=== PATIENT | female | born 1940 | race Caucasian/White ===

== ENCOUNTER 2017-06-04 08:00 | Day surgery (SDC) | payer OTHER ==
[2017-06-04] MEDS ORDERED: DIAZEPAM 5 MG TAB PO ONE (08:07)
[2017-06-04] MEDS ORDERED: FAMOTIDINE 20 MG TAB PO ONE (08:07)
[2017-06-04] MEDS ORDERED: diphenhydrAMINE 25 MG CAP PO ONE ×2 (08:07→08:35)
[2017-06-04] MEDS ORDERED: NS 1,000 ML IV ONE (08:07)
[2017-06-04] MEDS ORDERED: ASPIRIN EC 325 MG TAB PO ONE ×2 (08:07→08:35)
--- NOTE | 2017-06-04 08:30 | CPEKG ---
Heart Rate: 69 RR Interval: 870 P-R Interval: 168 QRSD Interval: 126 QT Interval: 432 QTC Interval: 463 P Hughson: 65 QRS Hughson: 55 T Wave Hughson: -57 EKG Severity - ABNORMAL ECG - EKG Impression: SINUS RHYTHM EKG Impression: LEFT BUNDLE BRANCH BLOCK EKG Impression: Agree with above Electronically Signed By: Eduardo Maldonado 04-Jun-2017 10:41:40
[2017-06-04] MEDS ORDERED: DIAZEPAM 5 MG TAB ONE (08:35)
[2017-06-04] MEDS ORDERED: FAMOTIDINE 20 MG TAB ONE (08:35)
--- NOTE | 2017-06-04 08:45 | PDPROPOC ---
Sedation Plan of Care Sedation Plan of Care: vital signs stable, mental status noted, patient educated of risks, benefits, alternatives, patient can tolerate sedation ASA Classification: ASA 2 Planned drugs: fentanyl, midazolam Mallampati Score: Class 2 Mallampati Reference Image: Patient passed 3-3-2 rule?: Yes
--- NOTE | 2017-06-04 08:46 | PDHPUP ---
History & Physical Update H&P update statement: This history and physical update is based on an assessment of the patient which was completed after admission or registration (within 24 hours), but prior to the surgery/procedure. H&P update: H&P reviewed & patient examined, no change in patient's condition since H&P completed, changes noted
[2017-06-04 08:59] LABS: PLATELET COUNT 244 10^3/uL (150-400)
[2017-06-04 09:06] LABS: INR 0.95 (0.83-1.16); PROTIME(PATIENT) 12.9 SEC (12.0-15.0)
[2017-06-04] MEDS ORDERED: fentaNYL 100 MCG/2 ML INJ ONE (10:00)
[2017-06-04] MEDS ORDERED: MIDAZOLAM 2 MG/2 ML VIAL ONE (10:00)
[2017-06-04] MEDS ORDERED: LIDOCAINE 1% 300 MG/30 ML SDV ONE (10:00)
[2017-06-04] MEDS ORDERED: IOPAMIDOL (ISOVUE-370) 150 ML BTL IV ONE (10:00)
[2017-06-04] MEDS ORDERED: ATROPINE SULFATE 1 MG/10 ML SYR ONE (11:05)
--- NOTE | 2017-06-04 11:12 | PDDXCAT ---
Diagnostic Cath Note - . Date: 06/04/17 Ceramics Teacher: Hever High-risk criteria on non-invasive testing: stress-induced moderate-size multiple perfusion defects - Procedure Access: right groin Procedure: left heart catheterization, coronary angiography, left ventriculogram - Materials Left Heart Cath size: 6F Left Heart Cath materials: standard multipack (JL4, JR4, pigtail), JL3.5 - Findings-Left Heart Catheterization LM: Short, bifurcation into the LAD and LCX vessels. No luminal irregularities were noted. LAD: Medium sized vessel with an early, principal diagonal (slightly smaller than the take off from the LAD). No appreciable luminal irregularities were noted. Distal vessel was small. LCX: Medium sized vessel with two principal obtuse marginals. Mid to distal LCX is small to moderate sized diameter. No luminal irregularities were noted. RCA: Medium to large diameter vessel. This vessel supplies the PDA. No luminal irregulartities, but there was a kink to to the osium of the RCA ( thought secondary to the catheter). EDP: 16 mm Hg LVEF: 55 Wall motion: normal Complications: none Estimated blood loss: <50ml Closure method: manual pressure Assessment: 76 y/o female with a small sized apical reversible perfusion defect and ongoing complaints of dyspnea (query anginal equivalent). No appreciable luminal irregularities were noted. Normal left ventricular systolic ejection fraction was noted. Plan: Plan to continue medical therapy as at present. Would have patient seen in the office in 1 week. Discussed findings with post case. Intervention: none
[2017-06-04 16:47] VITALS: BP 139/57
== END 2017-06-04 16:59 | disposition home or self-care (01) ==
LOC: FCATH 08:00
PROVIDERS: ATTEND Internal Medicine Cardiovascular Disease
PROC: B2111ZZ Fluoroscopy of Multiple Coronary Arteries using Low Osmolar Contrast (ICD-10-PCS; principal; 2017-06-04)
PROC: 4A023N7 Measurement of Cardiac Sampling and Pressure, Left Heart, Percutaneous Approach (ICD-10-PCS; principal; 2017-06-04)
PROC: B2151ZZ Fluoroscopy of Left Heart using Low Osmolar Contrast (ICD-10-PCS; principal; 2017-06-04)
DX: R94.39 Abnormal result of other cardiovascular function study (principal); R06.00 Dyspnea, unspecified; E78.5 Hyperlipidemia, unspecified; I10 Essential (primary) hypertension; Z79.82 Long term (current) use of aspirin; Z87.891 Personal history of nicotine dependence; Z82.49 Family history of ischemic heart disease and other diseases of the circulatory system; Z96.651 Presence of right artificial knee joint
CPT/HCPCS: J0461; J1644; J2250; J3010; Q9967

== ENCOUNTER 2017-11-03 09:19 | Observation (INO) | payer OTHER ==
[2017-11-03] MEDS ORDERED: DIAZEPAM 5 MG TAB PO ONE (09:22)
[2017-11-03] MEDS ORDERED: diphenhydrAMINE 25 MG CAP PO ONE ×2 (09:22→09:25)
[2017-11-03] MEDS ORDERED: ceFAZolin 2 GM/DEXTROSE 100 ML IV ONE (09:22)
[2017-11-03] MEDS ORDERED: BACITRACIN IRRIGATION/NS 50,000 UNITS/1,000 ML BTL IRR ONE (09:22)
[2017-11-03] MEDS ORDERED: NS 1,000 ML IV ONE (09:22)
[2017-11-03] MEDS ORDERED: DIAZEPAM 5 MG TAB ONE (09:25)
[2017-11-03 10:48] LABS: PLATELET COUNT 261 10^3/uL (150-400)
--- NOTE | 2017-11-03 10:50 | PDGENHP ---
History & Physical Chief Complaint: Second degree heart block History of Present Illness: dizziness Relevant Physical Exam: S1-S2 regular rate and rhythm lungs clear to auscultation alert and oriented x3 Cardiorespiratory Assessment: 77-year-old female with intermittent second- degree heart block noted on LINQ monitor. I have reviewed these tracings personally. I have discussed with Dr. Guillermo Kathleen who saw her in clinic yesterday. Patient has presyncope. Class 1 indication for pacemaker. Risks of transvenous pacemaker implantation including but not limited to , myocardial infarction, stroke, cardiac tamponade which may require emergent cardiac surgery, infection, bleeding, pneumothorax, lead dislodgement and risks of sedation/anesthesia were discussed. Long-term issues like pacemaker pocket erosion, lead failure, venous stenosis, superior vena cava syndrome, need for lead extraction were discussed. Need for close long-term follow-up in our device clinic was emphasized. Need for generator change was discussed.
--- NOTE | 2017-11-03 10:50 | PDPROPOC ---
Sedation Plan of Care Sedation Plan of Care: vital signs stable, mental status noted, patient educated of risks, benefits, alternatives, patient can tolerate sedation ASA Classification: ASA 2 Planned drugs: fentanyl, midazolam Mallampati Score: Class 1 Mallampati Reference Image: Patient passed 3-3-2 rule?: Yes
[2017-11-03 10:53] LABS: INR 1.02 (0.83-1.16); PROTIME(PATIENT) 13.6 SEC (12.0-15.0)
[2017-11-03] MEDS ORDERED: MIDAZOLAM 2 MG/2 ML VIAL ONE (11:11)
[2017-11-03] MEDS ORDERED: IOPAMIDOL (ISOVUE-300) 50 ML VIAL ONE (11:11)
[2017-11-03] MEDS ORDERED: fentaNYL 100 MCG/2 ML INJ ONE (11:11)
[2017-11-03] MEDS ORDERED: LIDOCAINE 1% 300 MG/30 ML SDV ONE (11:11)
[2017-11-03] MEDS ORDERED: BUPIVACAINE 0.5% 30 ML SDV ONE (11:12)
--- NOTE | 2017-11-03 14:05 | EPPROC ---
Electrophysiology Procedure Note: PROCEDURE PERFORMED: 1. Implantation of an A/V Pacemaker 2. Subclavian vein angiography 3. Fluoroscopy INDICATION: Complete AV block Fatigue PROCEDURE NOTE: Patient presented to the cardiac catheterization laboratory in a fasting, post absorptive state . EP RN administered sedation. The left infraclavicular area was prepped and draped in the usual sterile fashion. Lidocaine plus bupivacaine was used for local anesthesia. Left subclavian venography was performed by injection of iodinated contrast into the left antecubital vein. This was done to assure patency of the vein and also to assess for any anatomical aberrations. Using a combination of blunt and sharp dissection and electrocautery, the dissection was carried down to the prepectoral fascia. A pocket was made in this anatomical plane. All bleeding was controlled with electrocautery. The pocket was packed with gauze soaked in antibiotic solution. Fluoroscopy was utilized during the entire procedure for venous access and placement of the leads. Using a direct stick technique the left extrathoracic axillary vein was accessed with 2 sticks using the modified Seldinger technique. Placement of the guidewires into the venous system was confirmed by low-pressure blood return and also by visualizing the guidewires advancing into the inferior vena cava. A purse string suture was applied around the guidewires. Two #6 [place] sheaths were advanced under fluoroscopic guidance over the guidewire. An active fixation ventricular lead was advanced into the right ventricular apex and screwed in place. An active fixation atrial lead was advanced into the right atrial appendage and screwed in place. The peel away sheaths were removed. Pacing thresholds, sensing parameters and lead impedances were measured. There was no diaphragmatic stimulation at maximum output. The leads were sutured to the prepectoral fascia with 3 nonabsorbable sutures each. The pocket was again inspected for any bleeding. The leads were attached to the pacemaker securely. The pacemaker was inserted into the pocket and secured in place with a nonabsorbable suture. Fluoroscopy was performed in RICK and ICELANDIC planes to verify right-sided placement of the leads. Also fluoroscopy of the pacemaker pocket was performed. The pacemaker pocket was closed in 3 layers with absorbable monocryl sutures and aria. Appropriate dressing was applied. The patient left the cardiac catheterization laboratory in stable condition. Serial Numbers: 1. Device: [employer] MRI, PM 2272. SN: [id number] 2. Atrial Lead: SJM TENDRIL STS, /46. SN: [id number] 3. Ventricular Lead: SJM TENDRIL STS, /52. SN: [id number] Stimulation Thresholds & Impedance Measurements: 1. Atrial Lead: 1.0v@0.5ms /1.9mV / 426 ohms. 2. Ventricular Lead: 0.4V@0.5ms /4.0mV/ 532 ohms. Golden Pacing Parameters 1. Pacing mode: DDD 2. Lower rate: 60ppm 3. Upper tracking rate: 130 ppm 4. Upper sensor rate: 130 ppm Patient Problems: Problems Problem Status Onset Heart block AV second degree Acute
[2017-11-03] MEDS ORDERED: IBUPROFEN 600 MG TAB PO PRN (17:30)
[2017-11-03] MEDS ORDERED: TEMAZEPAM 15 MG CAP PO PRN (17:30)
[2017-11-03] MEDS: ACETAMINOPHEN 325 MG TAB PO PRN (17:49)
[2017-11-03] MEDS ORDERED: IRBESARTAN 150 MG TAB PO SCH (18:00)
[2017-11-03] MEDS ORDERED: FAMOTIDINE 20 MG TAB PO SCH (18:00)
[2017-11-03] MEDS: MEMANTINE HCL 5 MG TAB PO SCH (19:50)
[2017-11-04] MEDS: ACETAMINOPHEN 325 MG TAB PO PRN ×2 (02:36→07:17)
[2017-11-04 03:14] VITALS: BP 137/62
[2017-11-04 04:22] LABS: PLATELET COUNT 238 10^3/uL (150-400)
[2017-11-04] MEDS: MEMANTINE HCL 5 MG TAB PO SCH (08:16)
[2017-11-04] MEDS ORDERED: ASPIRIN 81 MG CHEWABLE TAB PO SCH (09:00)
[2017-11-04] MEDS ORDERED: ROSUVASTATIN CALCIUM 20 MG TAB PO SCH (09:00)
--- NOTE | 2017-11-04 12:00 | CPEKG ---
Test Reason : OPEN Blood Pressure : / mmHG Vent. Rate : 036 BPM Atrial Rate : 070 BPM P-R Int : 142 ms QRS Dur : 145 ms QT Int : 539 ms P-R-T Axes : 059 053 062 degrees QTc Int : 417 ms Predominant 2:1 AV block IVCD, consider atypical LBBB This 2:1 heart block is new in comparison to prior Confirmed by Guillermo Kathleen ([id number]) on 11/04/2017 11:59:50 AM Referred By: Confirmed By:Guillermo Kahtleen
--- NOTE | 2017-11-04 12:05 | CPEKG ---
Test Reason : OPEN Blood Pressure : / mmHG Vent. Rate : 060 BPM Atrial Rate : 060 BPM P-R Int : 204 ms QRS Dur : 156 ms QT Int : 509 ms P-R-T Axes : 045 -81 083 degrees QTc Int : 509 ms A-V dual-paced rhythm with some inhibition AV pacing is new in comparison to prior ECG Confirmed by Guillermo Kathleen ([id number]) on 11/04/2017 12:05:27 PM Referred By: Confirmed By:Guillermo Kathleen
--- NOTE | 2017-11-04 12:21 | CPEKG ---
Test Reason : OPEN Blood Pressure : / mmHG Vent. Rate : 067 BPM Atrial Rate : 068 BPM P-R Int : 182 ms QRS Dur : 160 ms QT Int : 466 ms P-R-T Axes : 048 -81 093 degrees QTc Int : 492 ms Sinus rhythm Nonspecific IVCD with LAD Left ventricular hypertrophy Inferior infarct, acute (RCA) Anterolateral infarct, old Probable RV involvement, suggest recording right precordial leads Prior ECG with AV pacing. Infrequent pacing spikes noted on this ECG (morphology appears similar to paced rhythm) Confirmed by Guillermo Kahtleen ([id number]) on 11/04/2017 12:20:11 PM Referred By: Confirmed By:Guillermo Kathleen
--- NOTE | 2017-11-04 15:29 | GDS ---
SUPERVISING LIFE TRAINER: Nirmal Bray MD ADMISSION DIAGNOSES: 1. Second-degree atrioventricular heart block, type II. 2. Paroxysmal atrial fibrillation. 3. Hyperlipidemia. 4. Hypertension. 5. Known history of left bundle branch block. DISCHARGE DIAGNOSES: 1. Second-degree heart block, type 2. 2. Status post permanent pacemaker implantation. 3. Paroxysmal atrial fibrillation. 4. Hypercholesteremia. 5. Hyperlipidemia. 6. Hypertension. 7. Left bundle branch block. PROCEDURES PERFORMED: 1. Electrocardiogram. 2. Implantation as a [employer] [facility] pacemaker with right atrial and right ventricular leads. 3. Subclavian angiogram. 4. Loop recorder removal. 5. Chest x-ray. BRIEF HISTORY: Please see H and P. Briefly, the patient is a 77-year-old female with noted history of PAF, hyperlipidemia and hypertension. She is currently not on anticoagulation due to implanted LI NQ with no recordable episodes of atrial fibrillation. Recently noted fatigue symptoms, patient repo rting palpitations, fluttering, LINQ data showed that she had episodes of second-degree AV block type II. She was asked to come to the hospital by Dr. Kathleen, for pacemaker implantation. HOSPITAL COURSE: Patient admitted to [facility], prepped for procedure, taken to the electrophysiology lab where Dr. Bray implanted a [employer] pacemaker with [employer] [facility] right atrial and right ventricular leads. No apparent complications. Old LINQ recorder was removed. The patient was taken back to the C an d ultimately to the PCU telemetry unit for overnight observation. There, she has been A sensed, V pa dino throughout the night. She denies any chest pain, pressure, or symptoms suggesting of ischemia. She has been up and walking with no lightheadedness. She reports her fatigue symptoms have significa ntly improved. PHYSICAL EXAMINATION: General appearance: Today, medium built, well-groomed female. She is alert and oriented to person, place, time, and situation, appears to be under no acute distress. VITAL SIGNS: Current: Blood pressure of 137/62, heart rate is 64, respirations 16, saturating 94% o n room air. Temperature of 36.7 degrees Celsius. HEENT: Head is normocephalic. Lips and tongue ar e pink and moist with no signs of cyanosis. Conjunctivae pink. NECK: Trachea is midline, +2 caroti d pulses bilateral. No auscultated bruits. No jugular vein distention. RESPIRATORY: Lungs are kyrie ar to auscultation. No rhonchi, rales, or wheezes. No accessory muscle use. No intercostal muscle retraction noted. CARDIAC: Regular rate, regular rhythm, S1, S2. No S3, S4, gallops, rubs, or murm urs noted. ABDOMEN: Soft, nontender. Bowel sounds x4 quadrants. No organomegaly. No palpable mas ses. SKIN: [place], warm, dry. No cyanosis. No clubbing. No peripheral edema. VASCULAR: +2 caroti ds bilateral, +2 radials bilateral, +1 dorsal pedal and posterior tibial pulses bilateral. SKIN: Pacemaker insertion site, left anterior chest, incision intact with aria, dressing change at this time. No redness, swelling, drainage ecchymosis, or hematoma. LINQ removal site, left medial chest, dressing intact with no redness, swelling, drainage, ecchymosis. LABORATORY/IMAGING: Studies drawn today show WBC of 7.69, hemoglobin 11.3, hematocrit of 34.1, plate let count of 238. Sodium 139, potassium 3.9, chloride 107, CO2 23, BUN 17, creatinine 0.9, glucose 9 1, calcium 9.0. Pacemaker implantation as done as mentioned above. A.M. electrocardiogram showing sinus rhythm, A sensed with V paced rhythm. A.M. chest x-ray showing no acute cardiopulmonary process, no delayed pneumothorax. Device interrogation by [facility] [facility] patient relations representative this morning showing device functioning within normal limits. DISCHARGE DISPOSITION: Patient will be discharged home in stable condition. She is under activity r estrictions of not lifting more than 10 pounds with the left arm for the next week and no lifting arm higher than shoulder, heart, or moving it backwards. DISCHARGE MEDICATIONS: Please see discharge medication reconciliation sheet. Note patient has been resumed on all home medications. DISCHARGE INSTRUCTIONS: Post-pacemaker discharge instructions went over with the patient, including monitoring for signs of infection, bleeding precautions, activity restrictions, and followup visits. Patient does have a device and wound check made in 1 week's time, and followup appointment with Dr. Bray in 1 month. At the time of discharge, patient and her verbalized understanding all instructions and have no questions or concerns. TOTAL TIME SPENT ON DISCHARGE: Greater than 30 minutes. /[id number]/MODL
== END 2017-11-04 10:51 | disposition home or self-care (01) ==
LOC: FCATH 09:19 → F2W 12:36
PROVIDERS: ADMIT Internal Medicine Cardiovascular Disease; ATTEND Internal Medicine Cardiovascular Disease
DX: I44.1 Atrioventricular block, second degree (principal); I48.0 Paroxysmal atrial fibrillation; E78.5 Hyperlipidemia, unspecified; I10 Essential (primary) hypertension
CPT/HCPCS: 33208; 71045; 71046; 93005; C1785; C1898; G0378; J0690; J2250; J3010; Q9967